=== PATIENT | female | born 1985 | race Caucasian/White ===

== ENCOUNTER 2022-06-20 08:11 | Outpatient (CLI) | payer MEDICAID, SELFPAY | END 2022-06-20 08:12 | disposition home or self-care (01) | PROVIDERS: Visit Provider Nurse Practitioner Family | DX: L89.892 Pressure ulcer of other site, stage 2 (principal); G82.50 Quadriplegia, unspecified; Z22.322 Carrier or suspected carrier of Methicillin resistant Staphylococcus aureus; Z99.3 Dependence on wheelchair | CPT/HCPCS: 99204 ==

== ENCOUNTER 2022-07-11 14:05 | Outpatient (CLI) | payer MEDICAID, SELFPAY | END 2022-07-11 14:06 | disposition home or self-care (01) | PROVIDERS: Visit Provider Nurse Practitioner Family | DX: L89.892 Pressure ulcer of other site, stage 2 (principal); G82.50 Quadriplegia, unspecified; Z22.322 Carrier or suspected carrier of Methicillin resistant Staphylococcus aureus; Z99.3 Dependence on wheelchair | CPT/HCPCS: 99213 ==

== ENCOUNTER 2022-08-31 11:16 | Outpatient (CLI) | payer MEDICAID, SELFPAY | END 2022-08-31 11:17 | disposition home or self-care (01) | LOC: WOUND 11:16 | PROVIDERS: Visit Provider Nurse Practitioner Family | DX: L89.892 Pressure ulcer of other site, stage 2 (principal); G82.50 Quadriplegia, unspecified; Z99.3 Dependence on wheelchair; Z22.322 Carrier or suspected carrier of Methicillin resistant Staphylococcus aureus | CPT/HCPCS: 99212 ==

== ENCOUNTER 2022-10-12 19:59 | Outpatient (REF) | payer MEDICAID, SELFPAY ==
[2022-10-13 14:31] LABS: Bilirubin Urine Negative (Negative); Blood Urine Negative (Negative); Color Urine Yellow (Yellow); Glucose Urine Negative (Negative); Ketones Urine Negative (Negative); Leukocyte Esterase Urine Negative (Negative); Nitrite Urine Negative (Negative); Protein Urine Negative (Negative); Urobilinogen Urine 0.2 (0.2-1.0)
[2022-10-13 14:39] LABS: Appearance Urine Slightly Cloudy (Clear)
[2022-10-13 14:40] LABS: Bacteria Urine Few; RBC Urine 0-2 (0-2); WBC Urine 0-2 (0-5)
== END 2022-10-12 20:00 | disposition home or self-care (01) ==
LOC: LAB 19:59
DX: N39.0 Urinary tract infection, site not specified (principal)
CPT/HCPCS: 81003; 81015; 87086; 87186

== ENCOUNTER 2025-05-31 19:30 | Outpatient (CLI) | payer MEDICARE, MEDICAID, SELFPAY | END 2025-05-31 19:31 | disposition home or self-care (01) | LOC: AMB 06-03 17:47 | PROVIDERS: Visit Provider Family Medicine | DX: R06.09 Other forms of dyspnea (principal) | CPT/HCPCS: A0425; A0427 ==